=== PATIENT | male | born 1980 | race Caucasian/White ===

== ENCOUNTER 2020-01-17 00:06 | Emergency (ER) | payer BC ==
--- NOTE | 2020-01-17 00:45 | NUR ---
Patient did not want to wait, patient left without being seen. No further treatment provided. ER MD aware
== END 2020-01-17 00:45 | disposition left against medical advice (07) ==
LOC: SED 00:06
DX: T14.8XXA Other injury of unspecified body region, initial encounter (principal); W57.XXXA Bitten or stung by nonvenomous insect and other nonvenomous arthropods, initial encounter; Y93.89 Activity, other specified; Y92.89 Other specified places as the place of occurrence of the external cause; Y99.8 Other external cause status; Z53.21 Procedure and treatment not carried out due to patient leaving prior to being seen by health care provider